=== PATIENT | male | born 1965 | race Two or more races ===

== ENCOUNTER 2019-10-26 21:12 | Emergency (ER) | payer MEDICAID, OTHER ==
[~2019-10-26] VITALS: Ht 165.1 cm; Wt 93.0 kg
[~2019-10-26 21:12] MED LIST: ASPI-1160; CITA10TA9; LORA1TAB; LOSA50TA3; METF500T; PROPANOLOL
[2019-10-26] MEDS ORDERED: ASPIRIN 81MG TABLET PO ONE (22:30)
[2019-10-26] MEDS ORDERED: NITROGLYCERIN 0.4MG TABLET SL SL PRN (22:30)
[2019-10-26 22:55] LABS: BASOPHILS % 1.2 % (0.0-2.0); EOSINOPHILS % 2.1 % (0.0-5.0); HEMATOCRIT. 40.6 % (42.0-52.0); HEMOGLOBIN. 13.8 g/dL (14.0-18.0); LYMPHOCYTES % 24.7 % (20.0-50.0); MEAN CORPUSCULAR HEMOGLOBIN 29.5 pg (28.0-32.0); MEAN CORPUSCULAR VOLUME 86.6 fL (80.0-94.0); MEAN PLATELET VOLUME 7.8 fl (7.4-10.4); PLATELET 291 x1000/uL (130-400); RED BLOOD CELL COUNT 4.68 mill/uL (4.7-6.1); RED CELL DISTRIBUTION WIDTH 14.8 % (11.6-14.6)
[2019-10-26 22:57] LABS: CHLORIDE 100 mEq/L (98-107)
[2019-10-27] VITALS: BP 134/73
== END 2019-10-27 00:03 | disposition home or self-care (01) ==
LOC: ER 21:12
DX: R07.9 Chest pain, unspecified (principal); E11.9 Type 2 diabetes mellitus without complications; I10 Essential (primary) hypertension; Z88.6 Allergy status to analgesic agent; Z79.82 Long term (current) use of aspirin; Z79.899 Other long term (current) drug therapy
CPT/HCPCS: 36415; 71045; 80053; 83880; 84484; 85025; 93005; 99285; Z7610

== ENCOUNTER 2021-01-27 22:02 | Emergency (ER) | payer MEDICAID ==
[~2021-01-27] VITALS: Ht 167.6 cm; Wt 90.0 kg
[2021-01-27] MEDS ORDERED: NITROGLYCERIN OINT 1GM/INCH UDPKT TD ONE (23:00)
[2021-01-27 23:47] LABS: BASOPHILS % 1.1 % (0.0-2.0); EOSINOPHILS % 6.1 % (0.0-5.0); HEMATOCRIT. 37.1 % (42.0-52.0); LYMPHOCYTES % 31.2 % (20.0-50.0); MEAN CORPUSCULAR HEMOGLOBIN 30.2 pg (28.0-32.0); MEAN CORPUSCULAR VOLUME 86.2 fL (80.0-94.0); MEAN PLATELET VOLUME 7.6 fl (7.4-10.4); NEUTROPHILS % 55.6 % (40.0-76.0); PLATELET 283 x1000/uL (130-400); RED CELL DISTRIBUTION WIDTH 15.2 % (11.6-14.6)
[2021-01-27 23:58] LABS: CHLORIDE 103 mEq/L (98-107)
[2021-01-28 02:58] VITALS: BP 108/73
== END 2021-01-28 03:31 | disposition left against medical advice (07) ==
LOC: ER 22:02
DX: R07.9 Chest pain, unspecified (principal); E11.9 Type 2 diabetes mellitus without complications; I10 Essential (primary) hypertension; Z88.6 Allergy status to analgesic agent; Z79.82 Long term (current) use of aspirin
CPT/HCPCS: 36415; 71045; 80053; 83880; 84484; 85025; 99284